=== PATIENT | male | born 1960 | race Caucasian/White ===

== ENCOUNTER → 2016-08-17 | Outpatient (CLI) | payer OTHER ==
[~2016-08-17] MED LIST: ALBUTEROL17 GM INH; ASPIRIN FREE325 MG PO; ASPIRIN81 M1 PO; BACTRIM DS TABL1 TA1 PO; CELEXA20 MG PO; CITALOPRAM HBR10 MG; COUGH MED; DEPRESSION PILL; ERY-TAB500 MG PO; FLAGYL PO; FLEXERIL10 M1; FLEXERIL10 MG PO; LEVAQUIN PO; LORTAB 10-5001 EACH PO; LORTAB 7.51 TAB 7.5/ PO; MOBIC; NAPROSYN500 MG PO; PHENERGAN25 M1 PO; PHENERGAN25 MG PO; PRILOSEC; PRILOSEC20 MG PO; RESPIRADOL PO; SEROQUEL; SEROQUEL PO; SEROQUEL XR200 MG PO; VOLTAREN75 MG PO; ZANAFLEX4 M1 PO; ZITHROMAX PO; ZITHROMAX1 G/PKT PO; [UNRECOGNIZED DRUG - REMARK]
--- NOTE | ~2016-08-17 | PFT ---
[id number] [facility] [address] [place], [place] [address] [id number] O MR#: [id number] NAME: MARTY CORNELIUS ROOM: SEX: Shaan STUDY DATE/TIME: 08/25/2016 : 1960 AGE: 56 STUDY DESCRIPTION: Attending Physician: Catrachito Pascual M.D. Referring Physician: Catrachito Pascual M.D. Primary Care Physician: Catrachito Pascual M.D. PULMONARY DIAGNOSTIC REPORT EXAM Pulmonary Function Test Spirometry is suggestive of a severe obstructive defect. There is a significant response to bronchodilators of 33% yielding an FEV1 of 1.25 liters, 35% of predicted. Flow volume loop is consistent with an obstructive defect. Lung volumes reveal air trapping. Diffusion capacity is reduced to 62%. 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 Dictated by... Gunjan Brennan/yonas TD: 08/25/2016 18:30 JOB #: [id number] PULMONARY DIAGNOSTIC REPORT Page 1 of 1
== END | disposition home or self-care (01) ==
LOC: CRC 09:35
DX: J44.9 Chronic obstructive pulmonary disease, unspecified (principal)
CPT/HCPCS: 94060; 94726; 94729

== ENCOUNTER → 2016-12-10 | Outpatient (CLI) | payer OTHER ==
--- NOTE | ~2016-12-10 | MR175 ---
[facility] A Service of [facility] & [facility] RADIOLOGY TEXT RESULTS PATIENT: MARTY CORNELIUS LOCATION: [facility] : 56 UNIT #: [id number] AGE: [address]: DIANE DUNN MD SEX: M ORDER DR: [id number] [facility] [address] [place], [place] [address] [id number] O MR#: [id number] Acc #: [id number] NAME: MARTY CORNELIUS : 1960 SEX: M STUDY DATE/TIME: 12/10/2016 10:14 UNIT: [facility] ROOM: STUDY DESCRIPTION: MR Thoracic WWo Contrast Attending Physician: Diane Dunn M.D. Referring Physician: Diane Dunn M.D. Ordering Physician: Diane Dunn M.D. Primary Care Physician: Diane Dunn M.D. MRI CENTER REPORT This report is preliminary unless electronic signature is present. EXAM MRI of the thoracic spine with and without contrast, dated 12/10/2016. COMPARISON CT angiogram chest, PE study, dated 05/09/2015. HISTORY Mid-back pain for 5 years. Right arm and right leg numbness. Diagnoses of spinal hemangiomas. FINDINGS Multisequence, multiplanar imaging of the thoracic spine was obtained with and without contrast. 20 mL of MultiHance was administered intravenously. Vertebral body alignment is preserved. There are endplate Schmorl nodes noted with associated loss of vertebral body height from T8 to T12. It is chronic appearing without any acute fracture, retropulsion of fragments into the canal. No significant bone edema is noted except for a fatty lesion with a small amount of edema along the inferior endplate of T12 vertebral body. In T11 vertebral body in the right lateral aspect, there is an increased T2 signal lesion. It has decreased T1 with a peripheral increase of T1 signal. Minimal enhancement cannot be excluded. It has a nonaggressive appearance. Thoracic cord demonstrates normal expected course, caliber and signal. Postcontrast sequences do not demonstrate enhancing lesions within the cord. There are mild enhancing vessels noted along the surface of the cord. Degenerative disc and facet changes are at multiple levels. T1-2: Bilateral central protrusions without canal stenosis or neural foraminal narrowing. T4-5: Based on the sagittal sequence there appears to be central protrusion which is not well seen in the axial images. [facility] A Service of [facility] & [facility] RADIOLOGY TEXT RESULTS PATIENT: MARTY CORNELIUS [facility] UNIT #: [id number] AGE: [address]: DIANE DUNN MD SEX: M ORDER DR: T5-6: Tiny central to left subarticular protrusion without canal stenosis. T7-8: Left central to right subarticular protrusion with mild mass effect in the adjacent thecal sac without cord compression. T8-9: Central protrusion extending to the left subarticular region. It has annual fissure and it causes mild mass effect on the adjacent thecal sac without cord compression. T9-10: Tiny right subarticular to central protrusion with mild bilateral facet changes. T10-11, T11-12: Mild disc bulges with bilateral facet changes particularly in T10-11. IMPRESSION 1. Chronic compression deformities of thoracic vertebrae are noted from T8 to T12. 2. In the inferior aspect of T12 vertebral body, there is a fatty signal with edema. Based on statistics, it is probably an atypical hemangioma. No associated extraosseous soft tissue components or pathological fracture is seen. It has a nonaggressive appearance. 3. 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 4. Facet changes and costovertebral joint changes are also noted, mild. 5. There are no prior studies available for comparison. 6. In T11 vertebral body in the right lateral aspect, there is an increased T2 signal lesion. It has decreased T1 with a peripheral increase of T1 signal. Minimal enhancement cannot be excluded. It has a nonaggressive appearance. There is no known history of malignancy in this patient to suggest any significant destructive lesion either. Correlation with prior imaging would be helpful given the history of spinal hemangioma. Dictated by... Shawn Seo M.D. THIS IS AN ELECTRONICALLY VERIFIED REPORT Shawn Seo M.D. at 12/14/2016 11:39 AM CPR/jt TD: 12/10/2016 19:47 JOB #: [id number] MRI CENTER REPORT [facility] A Service of [facility] & [facility] RADIOLOGY TEXT RESULTS PATIENT: MARTY CORNELIUS LOCATION: [facility] : 56 UNIT #: [id number] AGE: [address]: DIANE DUNN MD SEX: M ORDER DR: Page 1 of 1 COPY
== END | disposition home or self-care (01) ==
LOC: CMRI 09:26
DX: D18.09 Hemangioma of other sites (principal); G95.20 Unspecified cord compression; M51.34 Other intervertebral disc degeneration, thoracic region; M51.24 Other intervertebral disc displacement, thoracic region
CPT/HCPCS: 72157; A9577